=== PATIENT | male | born 1940 ===

== ENCOUNTER 2017-05-22 13:24 | Inpatient (IN) | payer OTHER, MEDICAID ==
[2017-05-22] VITALS (11 sets, daily range): BP systolic 77–154; BP diastolic 43–85
[~2017-05-22] VITALS: Ht 167.6 cm; Wt 57.0 kg
[2017-05-22 15:12] LABS: CALCIUM 7.5 mg/dL (8.5-10.1); CARBON DIOXIDE 29.3 mmol/L (21-32); CHLORIDE SERUM 96 mmol/L (98-107); CREATININE SERUM 2.1 mg/dL (0.7-1.3); GLUCOSE SERUM 243 mg/dL (74-106); POTASSIUM SERUM 4.3 mmol/L (3.5-5.1); SODIUM SERUM 132 mmol/L (136-145)
[2017-05-22 15:17] LABS: ALKALINE PHOSPHATASE 95 U/L (46-116); ALT/SGPT 11 U/L (16-63); AST/SGOT 11 U/L (15-37); BILIRUBIN TOTAL 0.4 mg/dL (0.20-1.00)
[2017-05-22 15:20] LABS: ALBUMIN 2.3 g/dL (3.4-5.0)
[2017-05-22 15:23] LABS: PLATELET COUNT 220 x10^3mcL (130-400)
[2017-05-22 15:31] LABS: BASOPHIL % 0 % (0-2); RED CELL DISTRIBUTION WIDTH 18.9 % (11.5-14.5)
[2017-05-22 16:06] LABS: rbc morphology (normal/abnorm) ABNORMAL (NORMAL); target cell (codocyte) 1+
[2017-05-22] MEDS ORDERED: CARDURA2 MG PO (16:15)
[2017-05-22] MEDS ORDERED: METOPROLOL TAR100 MG PO (16:16)
[2017-05-22] MEDS ORDERED: LIPI10 PO (16:16)
[2017-05-22] MEDS ORDERED: NEURONTIN100 MG PO (16:16)
[2017-05-22] MEDS ORDERED: BENADRYL ALLERG25 M1 PO (16:16)
[2017-05-22] MEDS ORDERED: DILTIAZEM HCL120 M2 PO (16:17)
[2017-05-22] MEDS ORDERED: NAMENDA10 M2 PO (16:17)
[2017-05-22] MEDS ORDERED: SYNTHROID0.05 MG PO (16:18)
[2017-05-22] MEDS ORDERED: NORCO1 TA2 PO (16:18)
[2017-05-22] MEDS ORDERED: DIGOXIN0.125 M1 PO (16:18)
[2017-05-22] MEDS ORDERED: BREO ELLIPTA1 POW IH (16:19)
[2017-05-22] MEDS ORDERED: ATIVAN2 MG PO (16:21)
[2017-05-22 17:11] LABS: PHOSPHOROUS 3.4 mg/dL (2.5-4.9)
[2017-05-22 17:12] LABS: CHOLESTEROL/HDL RATIO 1.8
[2017-05-22 17:16] LABS: T3 TOTAL 0.65 ng/mL
[2017-05-22 17:56] LABS: FREE T4 1.23 ng/dL (0.76-1.46); FREE THYROXINE INDEX 3.2 ug/dL (1.4-4.5); T4(THYROXINE) 8.1 ug/dL (4.7-13.3)
[2017-05-23 00:21] VITALS: BP 143/82
[2017-05-23 05:47] VITALS: BP 136/81
[2017-05-23 06:45] LABS: CALCIUM 7.6 mg/dL (8.5-10.1); CARBON DIOXIDE 24.8 mmol/L (21-32); CHLORIDE SERUM 98 mmol/L (98-107); GLUCOSE SERUM 125 mg/dL (74-106); MAGNESIUM 2.1 mg/dL (1.8-2.4); PHOSPHOROUS 5.3 mg/dL (2.5-4.9); SODIUM SERUM 138 mmol/L (136-145)
[2017-05-23 07:10] LABS: IRON 22 ug/dL (65-170); TOTAL IRON BINDING CAPACITY 160 ug/dL (250-450)
[2017-05-23 07:56] LABS: PLATELET COUNT 162 x10^3mcL (130-400)
[2017-05-23 07:57] LABS: RED CELL DISTRIBUTION WIDTH 19.7 % (11.5-14.5)
[2017-05-23 08:04] LABS: POTASSIUM SERUM 5.8 mmol/L (3.5-5.1)
[2017-05-23 08:28] LABS: RED BLOOD CELLS 1.68 M/mm3 (4.52-5.90)
[2017-05-23 09:09] VITALS: BP 107/69
[2017-05-23 10:57] LABS: BAND NEUTROPHIL 12 % (0-10); BASOPHIL 0 % (0-2); MONOCYTE 2 % (0-7); SEGMENTED NEUTROPHILS 83 % (37-75)
[2017-05-23 10:59] LABS: rbc morphology (normal/abnorm) ABNORMAL (NORMAL)
[2017-05-23 11:00] LABS: target cell (codocyte) 1+
[2017-05-23 12:06] LABS: microscopic required? YES; urine erythrocyte TRACE (NEGATIVE)
[2017-05-23 13:25] VITALS: BP 112/73
[2017-05-23 18:00] VITALS: BP 117/63
[2017-05-23 18:18] LABS: CALCIUM 7.5 mg/dL (8.5-10.1); CARBON DIOXIDE 28.5 mmol/L (21-32); CHLORIDE SERUM 98 mmol/L (98-107); CREATININE SERUM 3.3 mg/dL (0.7-1.3); GLUCOSE SERUM 135 mg/dL (74-106); SODIUM SERUM 137 mmol/L (136-145)
[2017-05-23 18:21] LABS: POTASSIUM SERUM 5.8 mmol/L (3.5-5.1)
[2017-05-23 20:39] VITALS: BP 136/65
[2017-05-24 00:48] VITALS: BP 104/59
[2017-05-24 02:54] VITALS: BP 120/59
[2017-05-24 06:06] VITALS: BP 94/57
[2017-05-24 06:35] LABS: CALCIUM 7.2 mg/dL (8.5-10.1); CARBON DIOXIDE 28.5 mmol/L (21-32); CHLORIDE SERUM 98 mmol/L (98-107); CREATININE SERUM 2.6 mg/dL (0.7-1.3); GLUCOSE SERUM 122 mg/dL (74-106); POTASSIUM SERUM 4.4 mmol/L (3.5-5.1); SODIUM SERUM 139 mmol/L (136-145)
[2017-05-24 07:52] LABS: PLATELET COUNT 136 x10^3mcL (130-400)
[2017-05-24 08:07] LABS: RED CELL DISTRIBUTION WIDTH 23.4 % (11.5-14.5)
[2017-05-24 10:16] VITALS: BP 122/57
[2017-05-24 13:32] LABS: BAND NEUTROPHIL 2 % (0-10); BASOPHIL 0 % (0-2); PLATELET MORPHOLOGY PLATELETS DECREASED; SEGMENTED NEUTROPHILS 98 % (37-75); rbc morphology (normal/abnorm) ABNORMAL (NORMAL)
[2017-05-24 14:00] VITALS: BP 95/56
[2017-05-24 21:17] VITALS: BP 97/56
[2017-05-25 06:09] VITALS: BP 94/50
[2017-05-25 07:24] LABS: CALCIUM 7.4 mg/dL (8.5-10.1); CARBON DIOXIDE 26.2 mmol/L (21-32); CHLORIDE SERUM 97 mmol/L (98-107); CREATININE SERUM 3.3 mg/dL (0.7-1.3); GLUCOSE SERUM 129 mg/dL (74-106); PHOSPHOROUS 4.1 mg/dL (2.5-4.9); POTASSIUM SERUM 3.9 mmol/L (3.5-5.1); SODIUM SERUM 135 mmol/L (136-145)
[2017-05-25 08:13] LABS: PLATELET COUNT 106 x10^3mcL (130-400); RED CELL DISTRIBUTION WIDTH 23.9 % (11.5-14.5)
[2017-05-25 09:05] VITALS: BP 107/54
[2017-05-25 10:00] VITALS: BP 107/54
[2017-05-25 11:57] LABS: BAND NEUTROPHIL 6 % (0-10); BASOPHIL 0 % (0-2); MONOCYTE 1 % (0-7); PLATELET MORPHOLOGY LARGE PLATELET SEEN; SEGMENTED NEUTROPHILS 90 % (37-75); rbc morphology (normal/abnorm) ABNORMAL (NORMAL)
[2017-05-25 13:29] VITALS: Ht 167.6 cm; Wt 57.0 kg
[2017-05-25 14:00] VITALS: BP 115/67
[2017-05-25 18:19] VITALS: BP 110/56
[2017-05-25 18:37] LABS: CALCIUM 7.8 mg/dL (8.5-10.1); CARBON DIOXIDE 30.1 mmol/L (21-32); CHLORIDE SERUM 100 mmol/L (98-107); CREATININE SERUM 1.8 mg/dL (0.7-1.3); GLUCOSE SERUM 187 mg/dL (74-106); SODIUM SERUM 139 mmol/L (136-145)
[2017-05-25 18:48] LABS: POTASSIUM SERUM 2.6 mmol/L (3.5-5.1)
[2017-05-25 19:05] LABS: PLATELET COUNT 115 x10^3mcL (130-400); RED CELL DISTRIBUTION WIDTH 17.4 % (11.5-14.5)
[2017-05-25 19:35] LABS: BAND NEUTROPHIL 5 % (0-10); BASOPHIL 0 % (0-2); MONOCYTE 3 % (0-7); SEGMENTED NEUTROPHILS 89 % (37-75)
[2017-05-25 19:38] LABS: rbc morphology (normal/abnorm) ABNORMAL (NORMAL)
[2017-05-25 19:39] LABS: PLATELET MORPHOLOGY PLATELETS DECREASED; target cell (codocyte) 1+
[2017-05-25 22:11] VITALS: BP 117/64
[2017-05-26 06:09] VITALS: BP 136/66
[2017-05-26 06:59] LABS: CALCIUM 7.6 mg/dL (8.5-10.1); CARBON DIOXIDE 30.1 mmol/L (21-32); CHLORIDE SERUM 101 mmol/L (98-107); CREATININE SERUM 2.2 mg/dL (0.7-1.3); GLUCOSE SERUM 141 mg/dL (74-106); MAGNESIUM 1.8 mg/dL (1.8-2.4); PHOSPHOROUS 2.4 mg/dL (2.5-4.9); POTASSIUM SERUM 3.3 mmol/L (3.5-5.1); SODIUM SERUM 138 mmol/L (136-145)
[2017-05-26 08:13] LABS: PLATELET COUNT 102 x10^3mcL (130-400); RED CELL DISTRIBUTION WIDTH 16.8 % (11.5-14.5)
[2017-05-26 09:13] LABS: BAND NEUTROPHIL 6 % (0-10); BASOPHIL 0 % (0-2); MONOCYTE 4 % (0-7); SEGMENTED NEUTROPHILS 85 % (37-75)
[2017-05-26 09:15] LABS: rbc morphology (normal/abnorm) ABNORMAL (NORMAL)
[2017-05-26 10:00] VITALS: BP 137/64
[2017-05-26 14:00] VITALS: BP 124/62
[2017-05-26] MEDS ORDERED: BD LACTINEX1.4 MG PO (14:35)
[2017-05-26] MEDS ORDERED: CLINDAMYCIN HC150 MG PO (14:35)
== END 2017-05-26 15:46 | disposition home health service (06) | DRG 871 ==
LOC: ED 13:24 → DU 15:16
PROVIDERS: Family Medicine; Internal Medicine; Internal Medicine Nephrology; ADMIT Family Medicine
PROC: 30233N1 Transfusion of Nonautologous Red Blood Cells into Peripheral Vein, Percutaneous Approach (ICD-10-PCS; principal; 2017-05-25)
DX: A41.9 Sepsis, unspecified organism (principal); J69.0 Pneumonitis due to inhalation of food and vomit; J96.01 Acute respiratory failure with hypoxia; E43 Unspecified severe protein-calorie malnutrition; N18.6 End stage renal disease; I50.43 Acute on chronic combined systolic (congestive) and diastolic (congestive) heart failure; J44.1 Chronic obstructive pulmonary disease with (acute) exacerbation; C16.9 Malignant neoplasm of stomach, unspecified; I42.9 Cardiomyopathy, unspecified; I13.2 Hypertensive heart and chronic kidney disease with heart failure and with stage 5 chronic kidney disease, or end stage renal disease; R65.20 Severe sepsis without septic shock; I48.91 Unspecified atrial fibrillation; R73.03 Prediabetes; D63.1 Anemia in chronic kidney disease; E03.9 Hypothyroidism, unspecified; E87.5 Hyperkalemia; F17.210 Nicotine dependence, cigarettes, uncomplicated; Z68.20 Body mass index [BMI] 20.0-20.9, adult; F03.90 Unspecified dementia, unspecified severity, without behavioral disturbance, psychotic disturbance, mood disturbance, and anxiety; Z66 Do not resuscitate; Z99.2 Dependence on renal dialysis
CPT/HCPCS: 36600; 82962; 83880; 84439; 94150; J0696; J2060; J2270; J2405; J2543; J2916; J2920; J2930; J3480; J3490; J7030; J7040; J7050; J7613; J7620; J7626; P9016; Q0092; Q0161; Q0163